=== PATIENT | male | born 1960 | race Caucasian/White ===

== ENCOUNTER 2017-10-09 20:31 | Emergency (ER) | payer MEDICARE, MEDICAID ==
[~2017-10-09] VITALS: Ht 182.9 cm; Wt 100.0 kg
[2017-10-09] MEDS ORDERED: DIPH,PERTUSS(ACELL),TET VAC/PF 0.5 ML IM-VACC ONE ×2 (21:00→21:14)
[2017-10-09 21:47] VITALS: BP 107/71
== END 2017-10-09 21:50 | disposition home or self-care (01) ==
LOC: ED 21:47
DX: T22.211A Burn of second degree of right forearm, initial encounter (principal); X12.XXXA Contact with other hot fluids, initial encounter; Y93.E9 Activity, other interior property and clothing maintenance; Y92.009 Unspecified place in unspecified non-institutional (private) residence as the place of occurrence of the external cause; Y99.8 Other external cause status
CPT/HCPCS: 90471; 90715; 99283

== ENCOUNTER 2018-06-09 21:39 | Emergency (ER) | payer MEDICARE, MEDICAID ==
--- NOTE | 2018-06-09 21:56 | NUR ---
BIBA FOR 2 WITNESSED SEIZURES. PT HAS A HX OF EPILEPSY. PT WAS COOKING PRIOR TO HAVING SEIZURE, HAS BRUISING TO FACE. NEURO EXAM INTACT ON ASSESSMENT. PT PLACED ON CONT SPO2, BP AND PORTFOLIO ANALYST
[2018-06-09 22:52] LABS: ANION GAP 8 mmol/L (5-15); CALCIUM 9.3 mg/dL (8.5-10.1); CHLORIDE 115 mmol/L (98-107); CREATININE 1.12 mg/dL (0.7-1.3)
--- NOTE | 2018-06-09 22:52 | NUR ---
pt resting on gurney. rr even and unlabored. awaiting lab results. at bedside. no needs or pain att.
[2018-06-10 00:01] VITALS: BP 115/70
== END 2018-06-10 00:04 | disposition home or self-care (01) ==
LOC: ED 23:50
DX: G40.909 Epilepsy, unspecified, not intractable, without status epilepticus (principal)
CPT/HCPCS: 36415; 80048; 99283

== ENCOUNTER 2018-08-24 10:59 | Emergency (ER) | payer MEDICARE, MEDICAID ==
[~2018-08-24] VITALS: Ht 182.9 cm; Wt 107.0 kg
[2018-08-24 12:03] LABS: ALANINE AMINOTRANSFERASE 24 U/L (12-78); ALBUMIN 4.2 g/dL (3.4-5.0); ANION GAP 7 mmol/L (5-15); CALCIUM 9.7 mg/dL (8.5-10.1); CHLORIDE 112 mmol/L (98-107); CREATININE 0.86 mg/dL (0.7-1.3)
[2018-08-24 12:06] LABS: BASOPHILS # (AUTO) 0.01 x10^3/uL (0-0.1); BASOPHILS % (AUTO) 0 % (0-1); EOSINOPHILS % (AUTO) 0 % (1-7); LYMPHOCYTES # (AUTO) 1.46 x10^3/uL (1-3.4); LYMPHOCYTES % (AUTO) 29 % (22-44); MD NO; MEAN CORPUSCULAR HEMOGLOBIN 27.9 pg (27.5-34.5); MEAN CORPUSCULAR HGB CONC 33.5 g/dL (33.2-36.2); MEAN CORPUSCULAR VOLUME 83.3 fL (81-97); MEAN PLATELET VOLUME 10.1 fL (7.4-10.4); MONOCYTES % (AUTO) 8 % (2-9); NEUTROPHILS # (AUTO) 3.16 x10^3/uL (1.8-6.8); NEUTROPHILS % (AUTO) 63 % (42-75); PLATELET COUNT 143 x10^3/uL (130-400); RED CELL DISTRIBUTION WIDTH 13.8 % (9.4-14.8)
[2018-08-24 12:13] LABS: ALKALINE PHOSPHATASE 110 U/L (45-117); BILIRUBIN,TOTAL 0.6 mg/dL (0.2-1.0); TOTAL PROTEIN 7.6 g/dL (6.4-8.2)
--- NOTE | 2018-08-24 12:32 | NUR ---
LIGHTING SPECIALIST: PT TO ROOM FROM [facility]
[2018-08-24] MEDS ORDERED: TOPI200T25 PO (12:47)
[2018-08-24] MEDS ORDERED: GABA600T7 PO (12:47)
[2018-08-24] MEDS ORDERED: KETOROLAC 30 MG/1 ML IM ONE (13:00)
[2018-08-24] MEDS ORDERED: KETOROLAC 30 MG/1 ML ONE (13:13)
--- NOTE | 2018-08-24 13:23 | NUR ---
Toradol admin and UA sent to lab.
[2018-08-24 13:36] LABS: MICROSCOPIC NOT IND
[2018-08-24 13:43] LABS: CULTURE INDICATED? NO
[2018-08-24 14:43] VITALS: BP 134/85
--- NOTE | 2018-08-24 14:50 | NUR ---
Patient/Caregiver given discharge instructions and they have confirmed that they understand the instructions. Patient ambulatory with steady gait.
== END 2018-08-24 14:54 | disposition home or self-care (01) ==
LOC: ED 14:48
DX: S29.012A Strain of muscle and tendon of back wall of thorax, initial encounter (principal); G40.909 Epilepsy, unspecified, not intractable, without status epilepticus; F17.200 Nicotine dependence, unspecified, uncomplicated; X58.XXXA Exposure to other specified factors, initial encounter; Y93.89 Activity, other specified; Y92.89 Other specified places as the place of occurrence of the external cause; Y99.8 Other external cause status
CPT/HCPCS: 36415; 80053; 81003; 83690; 85025; 96372; 99283; J1885